=== PATIENT | female | born 1995 | race Caucasian/White ===

== ENCOUNTER 2020-10-11 20:34 | Emergency (ER) | payer OTHER ==
[2020-10-11] MEDS ORDERED: LIDOCAINE PATCH 5% TOP STA (21:40)
[2020-10-11] MEDS ORDERED: KETOROLAC 60 MG/2 ML VIAL IM STA (21:40)
--- NOTE | 2020-10-11 21:41 | ED Physician Documentation ---
PD HPI BACK PAIN - Stated complaint Stated Complaint: LOWER BACK PX - Chief complaint Chief Complaint: Back Pain - History obtained from History obtained from: Patient - Additional information Additional information: She has been having low back pain ever since a complicated epidural 7 months ago. Over the last few days the pain is flared without specific reasoning. In the low back. It does not radiate. There is no weakness, numbness, tingling, saddle anesthesia, fevers, IV drug use. She had been on gabapentin in the past but did not like the way it made her feel. She is In physical therapy for this. Review of Systems Constitutional: reports: Reviewed and negative Eyes: reports: Reviewed and negative Ears: reports: Reviewed and negative Nose: reports: Reviewed and negative PD PAST MEDICAL HISTORY - Present Medications Home Medications: Ambulatory Orders Medication Instructions Recorded Confirmed Cyclobenzaprine [Flexeril] 10 mg PO TID PRN #14 tablet 10/11/20 Lidocaine Patch 5% [Lidoderm Patch] 1 patch TOP DAILY PRN #10 patch 10/11/20 Meloxicam [Mobic] 7.5 mg PO BID PRN #20 tablet 10/11/20 - Allergies Allergies/Adverse Reactions: Allergies Allergy/AdvReac Type Severity Reaction Status Date / Time Penicillins AdvReac Emesis Verified 10/11/20 20:57 PD ED PE NORMAL - Vitals Vital signs reviewed: Yes - General General: Alert and oriented X 3, No acute distress - Abdomen Abdomen: Soft, Non tender - Back Back: Other (Mild paralumbar tenderness around L3. No rash there.) - Extremities Extremities: Other (The patient has equal and normal Achilles and patellar reflexes bilaterally. Normal sensation in all areas of the legs. Patient denies saddle anesthesia. Normal strength in flexion-extension at the ankles, knees, and flexion of the hips.) - Neuro Neuro: Alert and oriented X 3, Normal speech Results - Vitals Vitals: Vital Signs - 24 hr 10/11/20 20:52 Temperature 36.4 C L Heart Rate 69 Respiratory 16 Rate Blood Pressure 121/70 O2 Saturation 100 Oxygen O2 Source Room air PD MEDICAL DECISION MAKING - ED course ED course: This patient has seemingly uncomplicated musculoskeletal back pain. The patient has no "red flags." Specifically denies IV drug use, fevers, incontinence, saddle anesthesia. Spinal epidural abscess was considered, given that the patient has no fever, is not diabetic, has no spinal tenderness, does not use IV drugs, and has no bilateral neurologic symptoms, the diagnosis of spinal epidural abscess is considered exceedingly unlikely. Departure - Departure Disposition: 01 Home, Self Care Clinical Impression: Back pain Qualifiers: Back pain location: low back pain Chronicity: acute Back pain laterality: midline Sciatica presence: without sciatica Qualified Code(s): M54.5 - Low back pain Condition: Good Record reviewed to determine appropriate education?: Yes Instructions: ED Low Back Pain Injury Prescriptions: Cyclobenzaprine [Flexeril] 10 mg PO TID PRN #14 tablet PRN Reason: Spasms Lidocaine Patch 5% [Lidoderm Patch] 1 patch TOP DAILY PRN #10 patch PRN Reason: pain Meloxicam [Mobic] 7.5 mg PO BID PRN #20 tablet PRN Reason: Pain Comments: [place] Return for new or worsening symptoms. Do not drink or drive while taking prescription muscle relaxer.
[2020-10-11 22:10] VITALS: BP 130/93
== END 2020-10-11 22:12 | disposition home or self-care (01) ==
LOC: ED 20:34
DX: M54.5 Low back pain (principal)
CPT/HCPCS: 96372; 99283; 99284; A9270

== ENCOUNTER 2022-07-08 07:35 | Outpatient (CLI) | payer OTHER ==
--- NOTE | 2022-07-08 12:11 | MRI Report ---
PROCEDURE: WRIST WO - RT INDICATIONS: RIGHT WRIST PAIN TECHNIQUE: Noncontrast coronal proton density fast spin echo and T2 fast spin echo with fat saturation; coronal 3-D gradient echo, axial T1 spin echo and T2 fast spin echo with fat saturation, sagittal T1 spin ech o through the wrist. COMPARISON: None. FINDINGS: Image quality: Excellent. Bones and cartilage: The carpal bones are normally aligned. No bone marrow contusions or fractures. No evidence for avascular necrosis. Overlying cartilage surfaces appear normal. Carpal ligaments: There is signal abnormality involving dorsal component of scapholunate ligament montgomery ggestive of low-grade partial-thickness tear. No full-thickness rupture. The lunotriquetral ligament appears intact. In the absence of intra-articular contrast, the extrinsic carpal ligaments are not w ell identified. On sagittal images, the pisohamate ligament appears intact. Triangular fibrocartilage complex: There is signal abnormality within central portion of triangular f ibrocartilage concerning for focal TFCC perforation. The adjacent meniscal homolog appears normal in the absence of intra-articular contrast. The extensor carpi ulnaris tendon is mildly thickened with intrasubstance T2 hyperintense signal at the level of ulnar styloid.. Tendons and soft tissues: The carpal tunnel structures appear normal, including the median nerve. T he ulnar nerve appears normal within Guyon's canal. All six extensor tendon compartments demonstrate normal morphology, without pathologic tendon sheath fluid. No soft tissue ganglion cysts. IMPRESSION: 1. No marrow edema. No fracture or dislocation. No evidence of avascular necrosis. 2. Suggestion of TFC tear near its central portion. 3. Low-grade partial-thickness involving dorsal component of scapholunate ligament. No full-thickness ligament rupture. Lunotriquetral ligament is intact. 4. Tendinosis and low-grade intrasubstance partial thickness tear involving extensor carpi ulnaris te ndon at the level of ulnar styloid. Rest of the extensor and flexor tendons are intact. Reviewed by: Kalin Miller MD on 07/08/2022 12:10 PM PST Approved by: Kalin Miller MD on 07/08/2022 12:10 PM PST Station ID: [id number]
== END 2022-07-08 07:36 | disposition home or self-care (01) ==
LOC: DI 07:35
PROVIDERS: ATTEND Student in an Organized Health Care Education/Training Program
DX: S63.591A Other specified sprain of right wrist, initial encounter (principal); S66.821A Laceration of other specified muscles, fascia and tendons at wrist and hand level, right hand, initial encounter

== ENCOUNTER 2022-08-29 14:10 | Emergency (ER) | payer OTHER ==
[2022-08-29 14:18] VITALS: BP 130/70
[2022-08-29] MEDS ORDERED: HYDROcod/ACETAM 5/325 MG TABLET PO STA (14:30)
--- NOTE | 2022-08-29 14:33 | ED Physician Documentation ---
History of Present Illness - Stated complaint Stated Complaint: RT HAND PX - Chief complaint Chief Complaint: Ext Problem - History obtained from History obtained from: Patient - History of Present Illness Pain level max: 7 Pain level now: 6 - Additonal information Additional information: 26-year-old female states that about 6 weeks ago she injured her right wrist and said she had "tendon injuries". She states she had been doing well had been out of her brace but today when she went to sweet pickle maker her toddler she felt pain in the hand and wrist. She states increasing pain throughout the day. Took Motrin without relief. No longer has her wrist brace. Worse with movement, better with rest. Denies any possibility of . 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 - Present Medications Home Medications: Ambulatory Orders Medication Instructions Recorded Confirmed Cyclobenzaprine [Flexeril] 10 mg PO TID PRN #14 tablet 10/11/20 Lidocaine Patch 5% [Lidoderm Patch] 1 patch TOP DAILY PRN #10 patch 10/11/20 Meloxicam [Mobic] 7.5 mg PO BID PRN #20 tablet 10/11/20 HYDROcod/ACETAM 5/325 [[place] 5/325] 1 - 2 ea PO Q6H PRN #14 tablet 08/29/22 Ibuprofen [Motrin] 800 mg PO Q8H PRN #30 tablet 08/29/22 - Allergies Allergies/Adverse Reactions: Allergies Allergy/AdvReac Type Severity Reaction Status Date / Time Penicillins AdvReac Emesis Verified 08/29/22 14:15 - Social History Does the pt smoke?: No Smoking Status: Never smoker Does the pt drink ETOH?: Yes Does the pt have substance abuse?: No - Immunizations Immunizations are current?: Yes PD ED PE NORMAL - Vitals Vital signs reviewed: Yes - General General: Alert and oriented X 3, No acute distress - HEENT HEENT: Moist mucous membranes - Derm Derm: Warm and dry - Extremities Extremities: Other (R hand/wrist - Tender to palpation over the volar aspect of the right wrist, no bony tenderness. No snuffbox tenderness. Most of the pain is with active range of motion of the fingers and wrist. Minimal pain with passive range of motion. Neurovascular intact. Otherwise normal exam) - Neuro Neuro: Alert and oriented X 3 Results - Vitals Vitals: Vital Signs - 24 hr 08/29/22 14:15 Temperature 36.5 C Heart Rate 77 Respiratory 16 Rate Blood Pressure 130/70 O2 Saturation 100 Oxygen O2 Source Room air PD Medical Decision Making - ED course Complexity details: considered differential, d/w patient ED course: 26-year-old female with what appears to be a recurrent injury of a known right wrist sprain. No indication for repeat x-rays today. Placed back in a Velcro thumb spica splint. We will have her follow-up with her doctor for further care. Neurovascular intact. Pain well controlled. Patient counseled regarding signs and symptoms for which I believe and urgent re-evaluation would be necessary. Patient with good understanding of and agreement to plan and is comfortable going home at this time This document was made in part using voice recognition software. While efforts are made to proofread this document, sound alike and grammatical errors may occur. Departure - Departure Disposition: 01 Home, Self Care Clinical Impression: Sprain of wrist, right Qualifiers: Encounter type: initial encounter Qualified Code(s): S63.501A - Unspecified sprain of right wrist, initial encounter Condition: Good Instructions: ED Sprain Wrist Follow-Up: your,doctor in 1 week [Other] Prescriptions: Ibuprofen [Motrin] 800 mg PO Q8H PRN #30 tablet PRN Reason: PAIN &/OR FEVER HYDROcod/ACETAM 5/325 [[place] 5/325] 1 - 2 ea PO Q6H PRN #14 tablet PRN Reason: Pain Comments: Please follow-up with your doctor for further care. Please return if you worsen. Your prescription was sent to [facility] in [place]. Wear the splint as needed for comfort. I am prescribing a short course of narcotic pain medication for you. These are potentially dangerous and addictive medications that should be used carefully. These medications may constipate you. Take an lara-bzp-terkeis stool softener (docusate) twice daily with plenty of water while taking these medications. If you go 24 hours without a bowel movement, take [id number] miralax, per package instructions. Do not drink or drive while taking these medications. If you received narcotic or sedating medications while in the emergency department, do not drive for 24 hours. Store this medication in a safe, secure place and out of reach of children. It is a violation of federal law to give or sell this medication to another person or to use in a manner other than prescribed. The ED will not refill narcotic prescriptions, including prescriptions lost or stolen. To dispose of unwanted medications: 1. [facility] [address] in [place] has a medication drop box. They accept prescription medications (in pill form) Wednesday through Wednesday 9:00 a.m. to 5:00 p.m. 2. The [facility] [employer] accepts prescription medications (in pill form only) for disposal year round. Call for more information. 3. Contact the [facility] for the next [facility] sponsored prescription drug collection event. , [phone], or [phone]; Discharge Date/Time: 08/29/22 14:51
== END 2022-08-29 14:51 | disposition home or self-care (01) ==
LOC: ED 14:10
DX: S63.501A Unspecified sprain of right wrist, initial encounter (principal); X58.XXXA Exposure to other specified factors, initial encounter
CPT/HCPCS: 99282; 99283; A9270

== ENCOUNTER 2022-10-13 08:00 | Outpatient (CLI) | payer OTHER ==
--- NOTE | 2022-10-13 20:55 | XRAY Report ---
PROCEDURE: Wrist 4 View RT INDICATIONS: RIGHT WRIST PAIN TECHNIQUE: 4 views of the wrist were acquired. COMPARISON: Right wrist MRI dated 07/08/2022. FINDINGS: Bones: No acute fractures or dislocations. No suspicious bony lesions. Scaphoid view: Scaphoid appears intact. Scapholunate interval is maintained. Soft tissues: No suspicious soft tissue calcifications or masses. IMPRESSION: Right wrist without acute fracture or dislocation. Reviewed by: Wander Duran MD on 10/13/2022 8:54 PM PDT Approved by: Wander Duran MD on 10/13/2022 8:54 PM PDT Station ID: [id number]
== END 2022-10-13 23:59 | disposition home or self-care (01) ==
LOC: DI.WOS 08:00
PROVIDERS: ATTEND Orthopaedic Surgery
DX: M25.531 Pain in right wrist (principal)

== ENCOUNTER 2022-10-26 13:16 | Emergency (ER) | payer OTHER ==
[2022-10-26 13:31] VITALS: BP 126/76
--- NOTE | 2022-10-26 13:44 | ED Physician Documentation ---
PD HPI UPPER EXT INJURY - Stated complaint Stated Complaint: RT WRIST PX - Chief complaint Chief Complaint: Trauma Ext - History obtained from History obtained from: Patient - Additonal information Additional information: 26-year-old female presents with right wrist pain. She states that she twisted it while putting on her purse yesterday. The patient has a history of a prior injury to this area and had an MRI in July of this year. She follows by orthopedic surgery and was trying to get into see them but was unable to do so today thus presented to the ER. She has been using ibuprofen and alternating ice and heat but continues to have discomfort on the radial side of the right wrist. No significant swelling, no erythema. 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 - Present Medications Home Medications: Ambulatory Orders Medication Instructions Recorded Confirmed Ibuprofen [Motrin] 800 mg PO Q8H PRN #30 tablet 08/29/22 10/26/22 Fluoxetine HCl [Prozac] 20 mg PO DAILY 10/26/22 10/26/22 - Allergies Allergies/Adverse Reactions: Allergies Allergy/AdvReac Type Severity Reaction Status Date / Time coconut Allergy Anaphylaxis Verified 10/26/22 13:23 Penicillins AdvReac Emesis Verified 10/26/22 13:22 - Social History Does the pt smoke?: No Smoking Status: Never smoker Does the pt drink ETOH?: Yes Does the pt have substance abuse?: No - Immunizations Immunizations are current?: Yes PD ED PE NORMAL - Vitals Vital signs reviewed: Yes - General General: Alert and oriented X 3, No acute distress, Well developed/nourished - HEENT HEENT: Atraumatic, Pharynx benign - Derm Derm: Normal color, Warm and dry - Extremities Extremities: No deformity, Other (Right wrist with very mild Swelling, no erythema. There is tenderness of the radial wrist with flexion extension and rotation.) Results - Vitals Vitals: Vital Signs - 24 hr 10/26/22 13:23 Temperature 36.8 C Heart Rate 88 Respiratory 16 Rate Blood Pressure 126/76 O2 Saturation 100 Oxygen O2 Source Room air - Rads (name of study) No standard instances Relevant Findings:: EMP independent interpretation of test PD Medical Decision Making - ED course Complexity details: reviewed results, considered differential, d/w patient, d/w family ED course: 26-year-old female presents with right wrist pain. The patient has a prior injury to this Wrist though no prior surgery. Physical exam today is reassuring, exam suggestive of a sprain. We did obtain x-ray which was read by me and there is no acute bony injury or dislocation. I discussed with patient that I was unable to tell if she had a new sprain versus an exacerbation of her prior injury but the treatment was the same nonetheless which would be immobilization, cool compress, NSAIDs. The patient states she has had a wrist splint but unable to wear due to the pain therefore we will just place a Medhat wrap on it today. The patient already follows with orthopedic surgery for prior injury to this wrist and is working on making a follow-up appointment. She did request that her images be given to her on a disc to take to her Ortho and I have requested this from radiology. Departure - Departure Disposition: 01 Home, Self Care Clinical Impression: Right wrist sprain Qualifiers: Encounter type: initial encounter Qualified Code(s): S63.501A - Unspecified sprain of right wrist, initial encounter Condition: Good Instructions: ED Sprain Wrist Comments: Please continue follow-up with your orthopedic surgeon for this issue. There is no bony injury however you may have exacerbated your prior injuries or have a new sprain. Treatment is supportive, cool compress, NSAIDs, Medhat wrap or splint.
--- NOTE | 2022-10-26 14:08 | XRAY Report ---
PROCEDURE: Wrist 3 View RT INDICATIONS: wrist sprain TECHNIQUE: 3 views of the wrist were acquired. COMPARISON: None. FINDINGS: Bones: No fractures or dislocations. No suspicious bony lesions. Soft tissues: No suspicious soft tissue calcifications or masses. IMPRESSION: No visualized acute fracture or dislocation. However, occult injury cannot be excluded. Recommend nasima rt interval imaging follow-up in 7-10 days as clinically indicated for additional evaluation. Reviewed by: Guerita Lawson MD on 10/26/2022 2:06 PM PDT Approved by: Guerita Lawson MD on 10/26/2022 2:06 PM PDT Station ID: [id number]
== END 2022-10-26 14:18 | disposition home or self-care (01) ==
LOC: ED 13:16
DX: S63.501A Unspecified sprain of right wrist, initial encounter (principal); X50.1XXA Overexertion from prolonged static or awkward postures, initial encounter; Y93.89 Activity, other specified
CPT/HCPCS: 99283

== ENCOUNTER 2023-03-23 12:03 | Emergency (ER) | payer OTHER ==
[2023-03-23 12:14] VITALS: O2SAT 99
[2023-03-23] MEDS ORDERED: SODIUM CHLORIDE 0.9% 1,000 ML IV STA (12:21)
[2023-03-23] MEDS ORDERED: KETOROLAC 30 MG/ML VIAL IVP STA (13:50)
[2023-03-23] MEDS ORDERED: PROMETHAZINE INJ 25 MG in SODIUM CHLORIDE 0.9% 50 ML IV STA (13:52)
[2023-03-23 15:41] VITALS: BP 128/69
--- NOTE | 2023-03-23 15:56 | ED Physician Documentation ---
PD HPI HEADACHE - Stated complaint Stated Complaint: MIGRAINE,N/V - Chief complaint Chief Complaint: Neuro - History obtained from History obtained from: Patient - Additional information Additional information: The patient comes to the emergency department with chief complaint of migraine headache for the last several days. She has a longstanding history of migraines and states that she has not been able to get it under control at home. She denies any fevers or chills. She has had nausea and vomiting which she states is normal for her migraines. No recent head injury. No neck pain. No other complaints at this time. The patient is not known to be . 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 - Present Medications Home Medications: Ambulatory Orders Medication Instructions Recorded Confirmed Fluoxetine HCl [Prozac] 20 mg PO DAILY 10/26/22 03/23/23 - Allergies Allergies/Adverse Reactions: Allergies Allergy/AdvReac Type Severity Reaction Status Date / Time coconut Allergy Anaphylaxis Verified 03/23/23 12:13 Penicillins AdvReac Emesis Verified 03/23/23 12:13 - Social History Does the pt smoke?: No Smoking Status: Never smoker Does the pt drink ETOH?: Yes Does the pt have substance abuse?: No - Immunizations Immunizations are current?: Yes - POLST Patient has POLST: No PD ED PE NORMAL - Vitals Vital signs reviewed: Yes - General General: Alert and oriented X 3, No acute distress, Well developed/nourished, Other (The patient appears mildly uncomfortable but otherwise in no apparent distress.) - HEENT HEENT: Atraumatic, PERRL, EOMI, Moist mucous membranes - Neck Neck: Supple, no meningeal sign - Cardiac Cardiac: RRR, No murmur - Respiratory Respiratory: No respiratory distress, Clear bilaterally - Abdomen Abdomen: Soft, Non tender, Non distended - Derm Derm: Normal color, Warm and dry, No rash - Extremities Extremities: No deformity - Neuro Neuro: Other (Alert, grossly oriented, neurologic exam grossly intact.) - Psych Psych: Normal mood, Normal affect Results - Vitals Vitals: Oxygen O2 Source Room air PD Medical Decision Making - ED course Complexity details: considered differential, d/w patient ED course: The patient was treated symptomatically in the emergency department and found to be feeling better. I felt she was stable for discharge home, as she has a longstanding history of migraines and the symptoms are exactly the same. We have discussed the need for follow-up and the usual indications for return. Departure - Departure Disposition: 01 Home, Self Care Clinical Impression: Migraine Qualifiers: Migraine type: unspecified Status migrainosus presence: without status m igrainosus Intractability: not intractable Qualified Code(s): G43.909 - Migraine, unspecified, not intractable, without status migrainosus Condition: Stable Instructions: ED Headache Migraine Comments: You have been treated with IV fluids and medication for your headache today. You have been given a sedating medication and should not drive for the next 6 hours. Please follow-up with your primary doctor if you continue to have headaches more than usual. Forms: Activity restrictions Discharge Date/Time: 03/23/23 16:11
== END 2023-03-23 16:11 | disposition home or self-care (01) ==
LOC: ED 12:03
DX: G43.909 Migraine, unspecified, not intractable, without status migrainosus (principal)
CPT/HCPCS: 96365; 96375; 99283; 99284; J7040